=== PATIENT | male | born 1935 | race Caucasian/White ===

== ENCOUNTER 2017-11-12 08:20 | Emergency (ER) | payer MEDICARE ==
[2017-11-12 09:34] VITALS: BP 142/66
--- NOTE | 2017-11-12 10:23 | UC ---
Respiratory Complaint HPI - HPI Summary HPI Summary: 82 year old with cough and URI Sx. Pt has Cough started 11/07/17, worsening; elevated temp last night. Hx of asthma. Belly pain with cough, yellow sputum. Pt took first dose of Z-Leonidas (2 tabs) last night with mucinex. Pt also has script for Tamiflu to take PRN but has not started; hx of pneumonia. [ End ] - History of Current Complaint Chief Complaint: UCRespiratory Stated Complaint: SINUSES, COUGH, FEVER Time Seen by Provider: 11/12/17 10:05 Hx Obtained From: Patient Onset/Duration: Gradual Onset Timing: Constant Severity Initially: Moderate Severity Currently: Moderate Pain Intensity: 0 Character: Cough: Productive Associated Signs And Symptoms: Positive: URI, Sinus Discomfort - Allergies/Home Medications Allergies/Adverse Reactions: Allergies Allergy/AdvReac Type Severity Reaction Status Date / Time environmental Allergy Wheezing Uncoded 11/12/17 09:17 Home Medications: Home Medications Azithromyxin LEONIDAS (NF) [Z-Leonidas (Zithromax) 250 mg tabs #6] 500 mg PO DAILY [History Confirmed 11/12/17] Garlic 1 each PO DAILY 11/12/17 [History Confirmed 11/12/17] Glucosam/Chond-MSM 2/C/D3/Matt [Yvdaxgnwxj-Cdsxsbwlamc-ZPO Tab] 2 each PO DAILY 11/12/17 [History Confirmed 11/12/17] Krill Oil 500 mg PO DAILY 11/12/17 [History Confirmed 11/12/17] L.acidoph,Paracasei, B.lactis [Probiotic] 1 each PO DAILY 11/12/17 [History Confirmed 11/12/17] Multivitamin [Multivitamins] 1 cap PO DAILY 11/12/17 [History Confirmed 11/12/17 ] guaiFENesin [Mucinex] 600 mg PO BID PRN 11/12/17 [History Confirmed 11/12/17] hydroCHLOROthiazide [Hydrochlorothiazide] 12.5 mg PO DAILY 11/12/17 [History Confirmed 11/12/17] PMH/Surg Hx/FS Hx/Imm Hx Previously Healthy: Yes Endocrine History: Dyslipidemia Cardiovascular History: Cardiac Disease, Hypertension Respiratory History: Pneumonia - Surgical History Surgical History: Yes Surgery Procedure, Year, and Place: open heart-2010, left knee replaced, hernia repair; back surgeries: cervical , L-S Spine Dr. Mary Benoit - Family History Known Family History: Positive: None - Social History Occupation: Retired - [place] Alcohol Use: Occasionally Substance Use Type: None Smoking Status (MU): Never Smoked Tobacco Review of Systems Constitutional: Fever, Chills, Fatigue Respiratory: Shortness Of Breath, Cough Is Patient Immunocompromised?: No All Other Systems Reviewed And Are Negative: Yes Physical Exam Triage Information Reviewed: Yes Appearance: Well-Appearing, Well-Nourished Vital Signs: Initial Vital Signs Temp 98.9 F 11/12/17 09:20 Pulse 100 11/12/17 09:20 Resp 24 11/12/17 09:20 BP 142/66 11/12/17 09:20 Pulse Ox 98 11/12/17 09:20 Vital Signs Reviewed: Yes Eye Exam: Normal ENT Exam: Normal Dental Exam: Normal Neck exam: Normal Neck: Positive: 1 Respiratory Exam: Normal Cardiovascular Exam: Normal Abdominal Exam: Normal Musculoskeletal Exam: Normal Neurological Exam: Normal Psychological Exam: Normal Skin Exam: Normal UC Diagnostic Evaluation - Laboratory O2 Sat by Pulse Oximetry: 98 Respiratory Course/Dx - Course Course Of Treatment: xray shows infiltrates -- he almelissa has the rest of z pack at home and will start ceftin with it for CAP-- if sx worsen then to go to ED - Differential Dx/Diagnosis Differential Diagnosis/HQI/PQRI: Asthma, Bronchitis, Influenza, Lower Resp Infection, Sinusitis Provider Diagnoses: community acquired pneumnonia Discharge - Discharge Plan Condition: Good Disposition: HOME Prescriptions: Cefuroxime 500 MG(NF) 500 mg PO BID #20 tab Patient Education Materials: Community Acquired Pneumonia (ED) Referrals: Joaquin Quinones MD [Primary Care Provider] - 4 Days (to ensure improvement ) Additional Instructions: You infiltrates on your xray today which indicates pneumonia and it is advised go back your PCP for follow up for potential chest xray follow up in 4 weeks . Please finish your azithromycin. Your flu test was negative
--- NOTE | 2017-11-12 10:46 | RAD ---
INDICATION: Cough, history of pneumonia. COMPARISON: There are no prior studies available for comparison. TECHNIQUE: Dual-energy PA and lateral views of the chest were obtained. FINDINGS: The patient is status poststernotomy. The heart is within normal limits in size. The lungs are hyperinflated. There are small infiltrates in both lower lobes. No pleural effusion is seen. IMPRESSION: SMALL BILATERAL LOWER LOBE INFILTRATES.
== END 2017-11-12 11:32 | disposition home or self-care (01) ==
LOC: UCCORT 08:20
DX: J18.9 Pneumonia, unspecified organism (principal); E78.5 Hyperlipidemia, unspecified; I10 Essential (primary) hypertension
CPT/HCPCS: 71046; 87502; 99212; G0463